=== PATIENT | male | born 1955 | race Caucasian/White ===

== ENCOUNTER 2018-04-05 18:52 | Emergency (ER) | payer BC ==
[2018-04-05 18:56] VITALS: BP 146/104
== END 2018-04-05 20:32 | disposition left against medical advice (07) ==
LOC: ED 18:52
DX: S01.81XA Laceration without foreign body of other part of head, initial encounter (principal); Z53.21 Procedure and treatment not carried out due to patient leaving prior to being seen by health care provider

== ENCOUNTER 2018-04-05 20:32 | Emergency (ER) | payer BC ==
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
[2018-04-05 20:39] VITALS: BP 144/99
[2018-04-05] MEDS ORDERED: Lidocaine 2% PF * 5 ML VIAL INJ ONE (20:44)
[2018-04-05] MEDS ORDERED: Tetan/Diph/Pertus SYR(Tdap)* 0.5 ML SYR(BOOSTRIX) use SYR IM ONE (20:44)
== END 2018-04-05 21:17 | disposition home or self-care (01) ==
LOC: UCEAST 20:32
DX: S01.81XA Laceration without foreign body of other part of head, initial encounter (principal); V18.0XXA Pedal cycle driver injured in noncollision transport accident in nontraffic accident, initial encounter; Y93.55 Activity, bike riding; Y92.9 Unspecified place or not applicable; Z23 Encounter for immunization
CPT/HCPCS: 12011; 90471; 90715; 99211; G0463